=== PATIENT | male | born 1990 | race Caucasian/White ===

== ENCOUNTER 2016-10-26 17:36 | Emergency (ER) | payer SELFPAY ==
[~2016-10-26] VITALS: Ht 172.7 cm; Wt 66.0 kg
[~2016-10-26 17:36] MED LIST: BENA25TA8 PO; DICY1TAB26 PO; MACR100C PO; METO10TA PO; REME15TA PO; SERO200T PO; SUBO8MIS SL
[2016-10-26 17:40] VITALS: BP 143/62; PULSE 54; RESP 16; TEMP 98.6; O2SAT 97
[2016-10-26] MEDS ORDERED: BACT800T5 PO (18:27)
[2016-10-26] MEDS ORDERED: MUPI2%T TOPICAL (18:27)
--- NOTE | 2016-10-26 18:31 | PD ---
HPI Chief Complaint: Skin Problem Time Seen by Provider: 16:20 Travel History International Travel<30 days: No Contact w/Intl Traveler<30days: No Traveled to known affect area: No History of Present Illness HPI 26-year-old male presents the emergency department with question cellulitis to the right arm status post tattoo on Wednesday. It is now Wednesday. He states he played hockey after getting the tattoo which may have aggravated it. He has increased erythema and tenderness. He denies fever, chills, or significant pain. His no known drug allergies. No history of MRSA in the past. [facility]LY [facility] Past Medical History Medical History: Denies Significant Hx ADHD: Yes (HX OF [place] WITH [facility] DR MERRITT) Cancer: No Diabetes: No Diminished Hearing: No Psychiatric: No Immunizations Current: No Migraines: No Seizures: No Thyroid Disease: No Ulcer: No Tetanus Vaccination: Unknown Influenza Vaccination: No Past Surgical History Surgical History: No Previous Surgery Appendectomy: No Cholecystectomy: No Social History Alcohol Use: No Tobacco Use: Yes (3-4) Substance Use: No (DENIES) Allergies-Medications (Allergen,Severity, Reaction): Coded Allergies: No Known Allergies (Verified , 10/26/16) Reported Meds & Prescriptions Reported Meds & Active Scripts Active Bactroban Topical (Mupirocin) 22 Gm Cream 1 Applic TOPICAL BID Bactrim DS (Sulfamethoxazole-Trimethoprim) 800-160 Mg Tab 1 Tab PO BID Review of Systems Except as stated in HPI: all other systems reviewed are Neg General / Constitutional: No: Fever Eyes: No: Visual changes HENT: No: Headaches Cardiovascular: No: Chest Pain or Discomfort Respiratory: No: Shortness of Breath Gastrointestinal: No: Abdominal Pain Genitourinary: No: Dysuria Musculoskeletal: No: Pain Skin: No Rash Neurologic: No: Weakness Psychiatric: No: Depression Endocrine: No: Polydipsia Hematologic/Lymphatic: No: Easy Bruising Physical Exam Narrative GENERAL: Patient appears no acute distress. SKIN: Warm and dry. Normal color. Normal turgor. Patient has a large new tattoo to the right anterior upper arm from shoulder to elbow. The area is somewhat indurated and erythematous with increased warmth present. No streaking or lymphangitis. No signs of abscess. HEAD: Atraumatic. Normocephalic. EYES: Pupils equal and round. No scleral icterus. No injection or drainage. ENT: No nasal bleeding or discharge. Mucous membranes pink and moist. NECK: Trachea midline. No JVD. CARDIOVASCULAR: Regular rate and rhythm. RESPIRATORY: No accessory muscle use. Clear to auscultation. Breath sounds equal bilaterally. GASTROINTESTINAL: Abdomen soft, non-tender, nondistended. Hepatic and splenic margins not palpable. MUSCULOSKELETAL: Extremities without clubbing, cyanosis, or edema. No obvious deformities. NEUROLOGICAL: Awake and alert. No obvious cranial nerve deficits. Motor grossly within normal limits. Five out of 5 muscle strength in the arms and legs. Normal speech. PSYCHIATRIC: Appropriate mood and affect; insight and judgment normal. Data Data Last Documented VS Vital Signs Date Time Temp Pulse Resp B/P Pulse Ox O2 Delivery O2 Flow Rate FiO2 10/26/16 17:40 98.6 54 16 143/62 97 MDM Medical Decision Making Medical Screen Exam Complete: Yes Emergency Medical Condition: Yes Differential Diagnosis Cellulitis. MRSA. Need for antibiotics. Narrative Course Patient is medically stable at time of exam. Dressing is applied to the area. Patient is to use Bactroban twice a day as directed. Patient is to be placed on Bactrim DS twice a day 7 days. Patient follow-up symptoms do not improve or worsen as discussed Diagnosis Primary Impression: Cellulitis of right upper extremity Referrals: [facility] Patient Instructions: Cellulitis (ED), General Instructions, MRSA (Methicillin Resistant Staphylococcus Aureus) (ED) Additional Instructions: Dressing is applied to the area. Patient is to use Bactroban twice a day as directed. Patient is to be placed on Bactrim DS twice a day 7 days. Patient follow-up symptoms do not improve or worsen as discussed Scripts Mupirocin Topical (Bactroban Topical)22 Gm Cream1 Applic TOPICAL BID #1 TUBE Prov:Shahab Terry MD 10/26/16 Sulfamethoxazole-Trimethoprim (Bactrim DS)800-160 Mg Tab1 Tab PO BID #14 TAB Prov:Shahab Terry MD 10/26/16 Disposition: 01 DISCHARGE HOME Condition: Stable Mariano Bridges Oct 26, 2016 18:31
== END 2016-10-26 18:38 | disposition home or self-care (01) ==
LOC: PHEFT 17:36
DX: L03.113 Cellulitis of right upper limb (principal); L81.8 Other specified disorders of pigmentation; Z72.0 Tobacco use; Z86.59 Personal history of other mental and behavioral disorders
CPT/HCPCS: 99284

== ENCOUNTER 2017-02-11 19:44 | Emergency (ER) | payer SELFPAY ==
[~2017-02-11] VITALS: Ht 172.7 cm; Wt 67.5 kg
[~2017-02-11 19:44] MED LIST changes: +BACT800T5 PO; -BENA25TA8 PO; -DICY1TAB26 PO; -MACR100C PO; -METO10TA PO; +MUPI2%T TOPICAL; -REME15TA PO; -SERO200T PO; -SUBO8MIS SL
[2017-02-11 19:58] VITALS: BP 119/60; PULSE 58; RESP 18; TEMP 98.4; O2SAT 98
[2017-02-11] MEDS ORDERED: BACT800T5 PO (21:08)
--- NOTE | 2017-02-11 21:08 | PD ---
HPI Chief Complaint: Skin Problem Time Seen by Provider: 20:47 Travel History International Travel<30 days: No Contact w/Intl Traveler<30days: No Traveled to known affect area: No History of Present Illness HPI 26-year-old male here for evaluation of a tender swollen area to his abdomen 2 days. He believes the area is an abscess. He denies fever or chills. Symptom severity is moderate. No alleviating factors. PFSH Past Medical History ADHD: Yes (HX OF [place] WITH [facility] DR MERRITT) Cancer: No Diabetes: No Diminished Hearing: No Psychiatric: No Immunizations Current: No Migraines: No Seizures: No Thyroid Disease: No Ulcer: No Tetanus Vaccination: Unknown Influenza Vaccination: No ?: Not Past Surgical History Appendectomy: No Cholecystectomy: No Social History Alcohol Use: No Tobacco Use: Yes (3-4 cigs/day) Substance Use: No (DENIES) Allergies-Medications (Allergen,Severity, Reaction): Coded Allergies: No Known Allergies (Verified Adverse Reaction, Unknown, 02/11/17) Reported Meds & Prescriptions Reported Meds & Active Scripts Active Bactroban Topical (Mupirocin) 22 Gm Cream 1 Applic TOPICAL BID Bactrim DS (Sulfamethoxazole-Trimethoprim) 800-160 Mg Tab 1 Tab PO BID Review of Systems Except as stated in HPI: all other systems reviewed are Neg Physical Exam Narrative GENERAL: Well-nourished, well-developed patient. SKIN: Focused skin assessment warm/dry. 3 cm area of induration and erythema to the lower anterior abdomen. No fluctuance. No surrounding cellulitis HEAD: Normocephalic. EYES: No scleral icterus. No injection or drainage. NECK: Supple, trachea midline. No JVD or lymphadenopathy. CARDIOVASCULAR: Regular rate and rhythm without murmurs, gallops, or rubs. RESPIRATORY: Breath sounds equal bilaterally. No accessory muscle use. GASTROINTESTINAL: Abdomen soft, non-tender, nondistended. Data Data Last Documented VS Vital Signs Date Time Temp Pulse Resp B/P (MAP) Pulse Ox O2 Delivery O2 Flow Rate FiO2 02/11/17 19:58 98.4 58 18 119/60 (79) 98 MDM Medical Decision Making Medical Screen Exam Complete: Yes Emergency Medical Condition: Yes Differential Diagnosis Abscess, folliculitis, cellulitis Narrative Course 26-year-old male here for evaluation of a possible abscess to his anterior abdomen after shaving. On exam patient is a 3 cm area of induration without fluctuance. Patient will be put on antibiotics instructed to continue with warm compresses and follow up in 2 days for recheck. Diagnosis Primary Impression: Abscess Referrals: Primary Care Physician Additional Instructions: Take antibiotics as prescribed. Continue with warm compresses several times per day. Follow-up with her doctor for recheck. Scripts Sulfamethoxazole-Trimethoprim (Bactrim DS) 800-160 Mg Tab 1 TAB PO BID for Infection, #20 TAB 0 Refills Prov: Karin Joe 02/11/17 Disposition: 01 DISCHARGE HOME Condition: Stable Karin Joe Feb 11, 2017 21:08
== END 2017-02-11 21:28 | disposition home or self-care (01) ==
LOC: PHEFT 19:44
DX: L02.211 Cutaneous abscess of abdominal wall (principal); Z72.0 Tobacco use
CPT/HCPCS: 99283

== ENCOUNTER 2017-02-15 12:59 | Emergency (ER) | payer SELFPAY ==
[~2017-02-15] VITALS: Ht 175.3 cm; Wt 65.1 kg
[2017-02-15 13:10] VITALS: BP 135/70; PULSE 65; RESP 15; TEMP 98.3; O2SAT 99
[2017-02-15] MEDS ORDERED: LIDOCAINE HCL 1% 50 ML VIAL INFIL ONE (14:00)
--- NOTE | 2017-02-15 14:27 | PD ---
HPI . Abscess Chief Complaint: Wound/Suture/Staple Re-Check Time Seen by Provider: 13:26 Travel History International Travel<30 days: No Contact w/Intl Traveler<30days: No Traveled to known affect area: No History of Present Illness HPI 26-year-old male patient presents emergency department for evaluation of an abscess to his right lower abdominal region. Patient was evaluated for the same complaint last at our facility and discharged home with Bactrim. Patient states he took medication night, Wednesday and Wednesday but when out of town Wednesday and hasn't taken any since. Patient states the abscess is growing in size and pain. When he got back in into town he came straight here instead of going home to take his medication. She denies any fever, chills, chest pain, shortness of breath, malaise, abdominal pain, nausea, vomiting, diarrhea, dysuria or hematuria. PFSH Past Medical History ADHD: Yes (HX OF [place] WITH [facility] DR MERRITT) Cancer: No Diabetes: No Diminished Hearing: No Psychiatric: No Immunizations Current: No Migraines: No Seizures: No Thyroid Disease: No Ulcer: No Tetanus Vaccination: < 5 Years Influenza Vaccination: No Past Surgical History Surgical History: No Previous Surgery Appendectomy: No Cholecystectomy: No Social History Alcohol Use: No Tobacco Use: Yes (3-4 cigs/day) Substance Use: No (DENIES) Allergies-Medications (Allergen,Severity, Reaction): Coded Allergies: No Known Allergies (Verified Adverse Reaction, Unknown, 02/15/17) Reported Meds & Prescriptions Reported Meds & Active Scripts Active Bactrim DS (Sulfamethoxazole-Trimethoprim) 800-160 Mg Tab 1 Tab PO BID Review of Systems Except as stated in HPI: all other systems reviewed are Neg Skin: Positive Other (abscess to right lower quadrant of abdomen) Physical Exam Narrative GENERAL: Well-nourished, well-developed patient. SKIN: There is an indurated area in the right lower quadrant which measures about 2 cm in diameter. It is fluctuant but there is no pointing or drainage. There is a zone of inflammation around it but no lymphangitis. HEAD: Normocephalic. EYES: No scleral icterus. No injection or drainage. NECK: Supple, trachea midline. No JVD or lymphadenopathy. CARDIOVASCULAR: Regular rate and rhythm without murmurs, gallops, or rubs. RESPIRATORY: Breath sounds equal bilaterally. No accessory muscle use. GASTROINTESTINAL: Abdomen soft, non-tender, nondistended. MUSCULOSKELETAL: No cyanosis, or edema. BACK: Nontender without obvious deformity. No CVA tenderness. Data Data Last Documented VS Vital Signs Date Time Temp Pulse Resp B/P (MAP) Pulse Ox O2 Delivery O2 Flow Rate FiO2 02/15/17 13:10 98.3 65 15 135/70 (91) 99 Orders Orders Lidocaine 1% Inj (50 Ml) (Xylocaine 1% I (02/15/17 14:00) Ed Discharge Order (02/15/17 14:27) Tetanus/Diphtheria Tox Adult (Tetanus/Di (02/15/17 14:30) Wound Culture And Gram Stain (02/15/17 14:30) [facility] Medical Decision Making Medical Screen Exam Complete: Yes Emergency Medical Condition: Yes Differential Diagnosis Differential diagnoses include been on into cellulitis, abscess, skin infection , noncompliance with antibiotic regimen Narrative Course 26-year-old male patient presents emergency department for evaluation of abscess to his right lower quadrant of his abdomen. There is an area was erythematous on the right lower quadrant within the erythematous area was an area of fluctuation that was approximately 2 cm in diameter. I&D was performed. Please see my procedural narrative. Patient was discharged home with instructions to keep the wound clean and dry, return in 2 days ago with packing removed and for a wound recheck and take his antibiotics that was previously prescribed as prescribed. Procedures Procedure Narrative INCISION AND DRAINAGE OF ABSCESS: The area was prepped and was sterilely draped. A subcutaneous wheal of 1 % Xylocaine with a total number 8 mL was used to anesthetize the area properly. A number 11 scalpel was used to make a 1 -cm incision across the area of the abscess. The abscess was drained, complex loculations were broken down, and irrigated with normal saline. Cultures were obtained. Quarter inch iodoform packing was placed in the wound. Sterile dressing applied. Patient advised to have packing removed in two days. Diagnosis Primary Impression: Encounter for incision and drainage procedure Additional Impression: Abscess Referrals: Primary Care Physician Patient Instructions: Abscess Incision and Drainage (DC), General Instructions Additional Instructions: Please return to emergency department if your symptoms return or worsen. Follow up with your primary care provider. Take Bactrim as prescribed. Keep wound clean and dry. Take ibuprofen or Tylenol as needed for pain or fevers. Return in 2 days to get the packing removed and for a wound recheck. Disposition: 01 DISCHARGE HOME Condition: Stable Priscila Marie Feb 15, 2017 14:27
[2017-02-15] MEDS ORDERED: TETANUS/DIPHTHERIA TOXOID ADULT 0.5 ML VIAL IM ONE (14:30)
== END 2017-02-15 14:47 | disposition home or self-care (01) ==
LOC: PHEFT 12:59
DX: L02.211 Cutaneous abscess of abdominal wall (principal); B95.62 Methicillin resistant Staphylococcus aureus infection as the cause of diseases classified elsewhere; Z16.19 Resistance to other specified beta lactam antibiotics; Z16.11 Resistance to penicillins; Z16.29 Resistance to other single specified antibiotic; Z23 Encounter for immunization
CPT/HCPCS: 10061; 86403; 87070; 87186; 87205; 90471; 90714

== ENCOUNTER 2017-02-18 12:12 | Emergency (ER) | payer SELFPAY ==
[2017-02-18 12:13] VITALS: BP 130/70; PULSE 62; RESP 14; TEMP 98.4; O2SAT 100
[2017-02-18] MEDS ORDERED: CLIN150C14 PO (12:32)
--- NOTE | 2017-02-18 12:32 | PD ---
HPI Chief Complaint: rash Time Seen by Provider: 12:22 Travel History International Travel<30 days: No Contact w/Intl Traveler<30days: No History of Present Illness HPI 26 yo M ingrown hair with abdominal wall unable to complete second half of antibiotics course. Seen here three days prior for I&D and things have improved. no fever. daily dressing changes have helped. pt resumed bactrim upon returning nd will finish course tomorrow. PFSH Past Medical History ADHD: Yes (HX OF [place] WITH [facility] MERRITT) Cancer: No Diabetes: No Diminished Hearing: No Psychiatric: No Immunizations Current: No Migraines: No Seizures: No Thyroid Disease: No Ulcer: No Past Surgical History Appendectomy: No Cholecystectomy: No Social History Alcohol Use: No Tobacco Use: Yes (3-4 cigs/day) Substance Use: No (DENIES) Allergies-Medications (Allergen,Severity, Reaction): Coded Allergies: No Known Allergies (Verified Adverse Reaction, Unknown, 02/15/17) Reported Meds & Prescriptions Reported Meds & Active Scripts Active Bactrim DS (Sulfamethoxazole-Trimethoprim) 800-160 Mg Tab 1 Tab PO BID Review of Systems General / Constitutional: No: Fever Skin: Positive Rash Physical Exam Narrative GENERAL: WNWD, NAD, 26 yo M SKIN: Abdominal wall abscess/cellulitis. approx 5 cm maximum diameter with moderate purulent discharge HEAD: Normocephalic. EYES: No scleral icterus. No injection or drainage. NECK: Supple, trachea midline. No JVD or lymphadenopathy. Data Data Last Documented VS Vital Signs Date Time Temp Pulse Resp B/P (MAP) Pulse Ox O2 Delivery O2 Flow Rate FiO2 02/18/17 12:13 98.4 62 14 130/70 (90) 100 VS reviewed [facility] Medical Decision Making Medical Screen Exam Complete: Yes Emergency Medical Condition: Yes Medical Record Reviewed: Yes Differential Diagnosis abscess, cellulitis, dermatitis Narrative Course Moderate purulent discharge Persistent cellulitis about the abdominal wall Wound irrigated at bedside Will dc with Clinda, dc Bactrim Return two days for wound recheck Diagnosis Primary Impression: Abdominal wall abscess Additional Impression: Cellulitis Qualified Codes: L03.311 - Cellulitis of abdominal wall Referrals: RETURN TO ER IN 2 DAYS FOR WOUND CHECK Med/Other Pt SpecificInfo: Prescription(s) given Scripts Clindamycin (Clindamycin) 150 Mg Cap 450 MG PO Q8HR for Infection for 7 Days, CAP 0 Refills Prov: Shahab Terry MD 02/18/17 Disposition: 01 DISCHARGE HOME Condition: Stable Shahab Terry MD Feb 18, 2017 12:32
[2017-02-18] MEDS ORDERED: CLINDAMYCIN 150 MG CAP PO ONE (12:45)
== END 2017-02-18 12:48 | disposition home or self-care (01) ==
LOC: NEPK 12:12
DX: L02.211 Cutaneous abscess of abdominal wall (principal); L03.311 Cellulitis of abdominal wall; F17.210 Nicotine dependence, cigarettes, uncomplicated; F90.9 Attention-deficit hyperactivity disorder, unspecified type
CPT/HCPCS: 99283